=== PATIENT | female | born 1995 | race Caucasian/White ===

== ENCOUNTER → 2017-10-05 | Outpatient (CLI) | payer OTHER ==
[~2017-10-05] MED LIST: GADAVIST IV PRN
--- NOTE | 2017-10-05 13:31 | DIAGNOSTIC IMAGING REPORT ---
L LOWER EXTREMITY JOINT COM CLINICAL HISTORY: MASS TECHNIQUE: Multi axial MRI acquisition COMPARISON STUDY: None FINDINGS: Signal characteristics the osseous structures appear unremarkable. There is no significant bone marrow replacing process. RF all major ligamentous and tendinous structures appear unremarkable. A surface marker is placed over an oval subdermal lesion medially anterior to the distal fibula. This involves exclusively the subcutaneous fat and has maximum dimensions of 2.7 x 1.5 cm. Signal characteristics are somewhat heterogeneous. There may be several small fat components. It is well-circumscribed. It shows no significant invasion into bony or tendinous structures. All remaining osseous structures are unremarkable. Major ligamentous and tendinous structures again appear to be intact. IMPRESSION: 1. Well-circumscribed subcutaneous subdermal nodule measuring 2.7 x 1.5 cm. 2. This is anterior to the distal fibula within the subcutaneous fat. 3. Differential considerations must include a neural-based lesion and/or tumor, fibrous type tumor, granular cell type tumor, versus the possibility of a complex lipoma. Neoplasm is less likely although is not entirely excluded. 4. Complete surgical resection for pathologic evaluation to exclude any possibility of a neoplastic processes is recommended. The above report was generated using voice recognition software. It may contain grammatical, syntax or spelling errors. Electronically signed by: Efra Moore M.D. 10/05/2017 1:29 PM Dictated Date/Time: 10/05/2017 1:18 PM
== END | disposition home or self-care (01) ==
LOC: C.MRI 10:10
PROVIDERS: ATTEND Orthopaedic Surgery Sports Medicine
DX: R22.40 Localized swelling, mass and lump, unspecified lower limb (principal)

== ENCOUNTER → 2017-11-13 | Day surgery (SDC) | payer OTHER ==
[2017-11-12 10:02] VITALS: Ht 162.6 cm; Wt 53.6 kg
[~2017-11-13] VITALS: Ht 162.6 cm; Wt 53.6 kg
[~2017-11-13] MED LIST changes: +BCPILLS PO; +CEFAZOLIN 1000MG IV PUSH 5 ML IV SCH; -GADAVIST IV PRN; +LACTATED RINGER'S 1000ML 1,000 ML IV SCH; +PATIENT'S ALLERGY INFO NEEDS ENTERED SCH
== END | disposition home or self-care (01) ==
LOC: EDSTATUS 07:00 → C.PAT 15:41
PROVIDERS: ATTEND Orthopaedic Surgery Sports Medicine
DX: M79.9 Soft tissue disorder, unspecified (principal)